=== PATIENT | female | born 1990 | race Caucasian/White ===

== ENCOUNTER 2018-05-10 00:01 | Emergency (ER) | payer BC ==
--- NOTE | 2018-05-10 01:53 | ED ---
HPI Chest Pain - HPI Summary HPI Summary: Patient complains of persistent chest pressure, SOB, insomnia, tingling in arms and legs, vaginal discharge. Patient states same chest symptoms 2 months, with symptoms getting worse today. States history of anxiety, with large increase in recent stress. 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 Patient states symptoms are usually at rest, not with exertion. States symptoms improved with exertion. History of stress test a year ago after patient discovered to have MVP and PVCs. Medical history includes asthma. Denies fever, cough, sore throat, N/V/D, abdominal pain, change in urine or BM, . - History of Current Complaint Chief Complaint: EDChestWallPain Time Seen by Provider: 05/10/18 01:00 Hx Obtained From: Patient Onset/Duration: Started Weeks Ago Timing: Intermittent Initial Severity: Mild Current Severity: Mild Pain Intensity: 4 Pain Scale Used: 0-10 Numeric Chest Pain Location: Discrete at:, Left Anterior Chest Pain Radiates: No Character: Heaviness, Pressure/Squeezing, Tightness Aggravating Factor(s): Rest Alleviating Factor(s): Other: - Exertion Associated Signs and Symptoms: Positive: Chest Pain, Anxiety, Tingling, Shortness of Breath - Allergy/Home Medications Allergies/Adverse Reactions: Allergies Allergy/AdvReac Type Severity Reaction Status Date / Time No Known Allergies Allergy Verified 05/10/18 00:07 PMH/Surg Hx/FS Hx/Imm Hx Endocrine/Hematology History: Denies: Hx Anticoagulant Therapy Cardiovascular History: Denies: Hx Cardiac Arrest History: Denies: Hx Dialysis Neurological History: Denies: Hx CVA Infectious Disease History: No Infectious Disease History: Denies: Traveled Outside the [place] in Last 30 Days - Social History Alcohol Use: Weekly Substance Use Type: Reports: None Smoking Status (MU): Current Some Day Smoker Review of Systems Constitutional: Negative Eyes: Negative ENT: Negative Positive: Chest Pain Positive: Shortness Of Breath Gastrointestinal: Negative Genitourinary: Negative Musculoskeletal: Negative Skin: Negative Positive: Paresthesia Psychological: Normal All Other Systems Reviewed And Are Negative: Yes Physical Exam Triage Information Reviewed: Yes Vital Signs On Initial Exam: Initial Vitals Temp Pulse Resp BP Pulse Ox 97.1 F 58 16 153/86 100 05/10/18 00:04 05/10/18 00:04 05/10/18 00:04 05/10/18 00:04 05/10/18 00:04 Vital Signs Reviewed: Yes Appearance: Positive: Well-Appearing Skin: Positive: Warm Head/Face: Positive: Normal Head/Face Inspection Eyes: Positive: Normal Neck: Positive: Supple Respiratory/Lung Sounds: Positive: Clear to Auscultation Cardiovascular: Positive: Normal Abdomen Description: Positive: Nontender Musculoskeletal: Positive: Normal Neurological: Positive: Normal Psychiatric: Positive: Normal AVPU Assessment: Alert - Valeria Coma Scale Best Eye Response: 4 - Spontaneous Best Motor Response: 6 - Obeys Commands Best Verbal Response: 5 - Oriented Coma Scale Total: 15 Diagnostics - Vital Signs Vital Signs Temp Pulse Resp BP Pulse Ox 05/10/18 00:04 97.1 F 58 16 153/86 100 - Laboratory Lab Statement: Any lab studies that have been ordered have been reviewed, and results considered in the medical decision making process. Chest Pain Course/Dx - Course Course Of Treatment: Patient complains of persistent chest pressure, SOB, insomnia, tingling in arms and legs, vaginal discharge. Patient states same chest symptoms 2 months, with symptoms getting worse today. States history of anxiety, with large increase in recent stress. 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 Patient states symptoms are usually at rest, not with exertion. States symptoms improved with exertion. History of stress test a year ago after patient discovered to have MVP and PVCs. Medical history includes asthma. Denies fever, cough, sore throat, N/V/D, abdominal pain, change in urine or BM, . History of recent bacterial vaginosis infection. States return of vaginal discharge. History of anxiety. Appointment this Wednesday with palpation PCP. Appointment with cardiology . History of similar symptoms over the past year. Has been evaluated by cardiology and primary care for same. History of anxiety. Increase in recent stress with movement to start graduate school here. EKG normal. Vital signs normal. Follow-up with primary care and cardiology. Return for any new or worsening symptoms. Trial Vistaril for anxiety and insomnia. Rx for Flagyl for BV. - Diagnoses Provider Diagnoses: Atypical chest pain, Anxiety, Bacterial vaginosis Discharge - Sign-Out/Discharge Documenting (check all that apply): Patient Departure - Discharge Plan Condition: Stable Disposition: HOME Prescriptions: hydrOXYzine pamoate [Vistaril] 50 mg PO BID 10 Days #20 capsule metroNIDAZOLE [Flagyl] 500 mg PO BID 7 Days #14 tablet Patient Education Materials: Bacterial Vaginosis (ED), Anxiety (ED) Referrals: No Primary Care Phys,NOPCP [Primary Care Provider] - Additional Instructions: Follow-up with primary care and cardiology. Return to the ED for any new or worsening symptoms - Billing Disposition and Condition Condition: STABLE Disposition: Home
[2018-05-10] MEDS ORDERED: hydrOXYzine HCL TAB* 50 MG PO ONE (01:54)
[2018-05-10 02:07] VITALS: BP 124/87
== END 2018-05-10 02:07 | disposition home or self-care (01) ==
LOC: ED 00:01
DX: R07.89 Other chest pain (principal); F41.9 Anxiety disorder, unspecified; N76.0 Acute vaginitis; R06.02 Shortness of breath; G47.00 Insomnia, unspecified; R20.2 Paresthesia of skin; F17.200 Nicotine dependence, unspecified, uncomplicated
CPT/HCPCS: 93005; 99282; A9270-GY

== ENCOUNTER 2018-06-17 18:24 | Emergency (ER) | payer BC ==
--- NOTE | 2018-06-17 19:00 | ED ---
HPI Chest Pain - HPI Summary HPI Summary: The pt is a 27 y/o female presenting to [facility] c/o chest pain since 1629 today. The pain rated 6/10 in intensity is described as a pressure. She notes palpitations, SOB and tingling in the LUE but denies dyspnea. She has a hx of mitral valve prolapse , PVC's, asthma and anxiety . She is on the Mirena IUD. - History of Current Complaint Chief Complaint: EDChestPainROMI Time Seen by Provider: 06/17/18 18:50 Hx Obtained From: Patient, Family/Freight Flow Sales Leader - Friend Onset/Duration: Started Hours Ago - At 1630 today Current Severity: Moderate Pain Intensity: 6 Pain Scale Used: 0-10 Numeric Chest Pain Location: Diffuse Character: Pressure/Squeezing Associated Signs and Symptoms: Positive: Negative - Dyspnea, Chest Pain, Tingling - LUE, Shortness of Breath, Palpitations - Allergy/Home Medications Allergies/Adverse Reactions: Allergies Allergy/AdvReac Type Severity Reaction Status Date / Time sulfamethoxazole Allergy Insomnia Verified 06/17/18 18:31 [From Bactrim] trimethoprim [From Bactrim] Allergy Insomnia Verified 06/17/18 18:31 Home Medications: Home Medications NK [No Home Medications Reported] 06/17/18 [History Confirmed 06/17/18] PMH/Surg Hx/FS Hx/Imm Hx Previously Healthy: No Endocrine/Hematology History: Denies: Hx Anticoagulant Therapy Cardiovascular History: Reports: Other Cardiovascular Problems/Disorders - MVP Denies: Hx Cardiac Arrest Respiratory History: Reports: Hx Asthma History: Denies: Hx Dialysis Sensory History: Denies: Hx Deafness Opthamlomology History: Denies: Hx Legally Blind Neurological History: Denies: Hx CVA Psychiatric History: Reports: Hx Anxiety - Cancer History Cancer Type, Location and Year: None reported Infectious Disease History: No Infectious Disease History: Denies: Traveled Outside the [place] in Last 30 Days - Family History Known Family History: Positive: Cardiac Disease, Hypertension, Diabetes, Other - HLD, MVP - Social History Alcohol Use: Weekly Substance Use Type: Reports: Marijuana Smoking Status (MU): Current Some Day Smoker Review of Systems Positive: Palpitations, Chest Pain Respiratory: Negative - Dyspnea Positive: Shortness Of Breath Neurological: Other - Positive- tingling in the LUE All Other Systems Reviewed And Are Negative: Yes Physical Exam - Summary Physical Exam Summary: Appearance: Well appearing, no pain distress Skin: warm, dry, reflects adequate perfusion Head/face: normal Eyes: EOMI, GAIL ENT: normal Neck: supple, non-tender Respiratory: CTA, breath sounds present Cardiovascular: RRR, pulses symmetrical Abdomen: non-tender, soft Bowel: present Musculoskeletal: normal, strength/ROM intact Neuro: normal, sensory motor intact, A&Ox3 Triage Information Reviewed: Yes Vital Signs On Initial Exam: Initial Vitals Temp Pulse Resp BP Pulse Ox 98.3 F 78 16 123/71 100 06/17/18 18:28 06/17/18 18:28 06/17/18 18:28 06/17/18 18:28 06/17/18 18:28 Vital Signs Reviewed: Yes Diagnostics - Vital Signs Vital Signs Temp Pulse Resp BP Pulse Ox 06/17/18 18:47 80 18 119/85 100 06/17/18 18:28 98.3 F 78 16 123/71 100 - Laboratory Result Diagrams: 06/17/18 19:04 06/17/18 19:04 Lab Statement: Any lab studies that have been ordered have been reviewed, and results considered in the medical decision making process. - EKG 19:09 Cardiac Rate: NL - 70 bpm EKG Rhythm: Sinus Rhythm EKG Interpretation: No acute changes Chest Pain Course/Dx - Course Course Of Treatment: A 27-year-old F presents to the ED with a CC of chest pain since 1630 today. The pain rated 6/10 in intensity is described as a pressure. She notes palpitations, SOB and tingling in the LUE but denies dyspnea. She has a hx of mitral valve prolapse, PVC's, asthma and anxiety. She is on the Mirena IUD. A physical exam is normal. A CXR is unremarkable. An EKG is unremarkable. Patient will be discharged with a final Dx of palpitations and atypical chest pain. The pt is agreeable with this plan. Allergies noted. - Chest Pain Differential Diagnosis/HQI/PQRI: Chest Wall, Other: - palpitations - Diagnoses Provider Diagnoses: Palpitations, Atypical chest pain Discharge - Sign-Out/Discharge Documenting (check all that apply): Patient Departure - DC - Discharge Plan Condition: Improved Disposition: HOME Patient Education Materials: Chest Pain (ED), Heart Palpitations (ED) Referrals: Aracely Garcia MD [Primary Care Provider] - 2 Weeks Additional Instructions: Return to ED for any new or worsening symptoms - Billing Disposition and Condition Condition: IMPROVED Disposition: Home - Attestation Statements Document Initiated by Jeffreyibeloina: Yes Documenting Scribe: Paola Georges Provider For Whom Jeffreyibeloina is Documenting (Include Credential): Dr. Sydnee Crocker MD Scribe Attestation: Paola Monterroso , scribed for Dr. Sydnee Crocker MD on 06/17/18 at 2049. Scribe Documentation Reviewed: Yes Provider Attestation: The documentation as recorded by the Paola jiménez accurately reflects the service I personally performed and the decisions made by , Dr. Sydnee Crocker MD
[2018-06-17 19:31] LABS: ABS Basophils 0 10^3/ul (0-0.2); ABS Eosinophils 0 10^3/ul (0-0.6); ABS Lymphocytes 1.6 10^3/ul (1.0-4.8); ABS Monocytes 0.3 10^3/ul (0-0.8); ABS Neutrophils 7.3 10^3/ul (1.5-7.7); ABS Nucleated RBC 0 10^3/ul; Eosinophil % 0.1 % (0-6); Hematocrit 43 % (35-47); Hemoglobin 14.6 g/dl (12.0-16.0); Mean Corpuscular HGB Conc 34 g/dl (31-36); Mean Corpuscular Hemoglobin 31 pg (27-31); Mean Corpuscular Volume 92 fL (80-97); Mean Platelet Volume 8.6 um3 (7.4-10.4); Nucleated Red Blood Cells % 0; Platelet Count 183 10^3/ul (150-450); Red Blood Count 4.66 10^6/ul (4.00-5.40); Red Cell Distribution Width 14 % (10.5-15); White Blood Count 9.2 10^3/ul (3.5-10.8)
[2018-06-17 19:38] LABS: INR 0.91 (0.77-1.02)
[2018-06-17 20:31] VITALS: BP 131/70
--- NOTE | 2018-06-18 07:40 | RAD ---
HISTORY: palpitations COMPARISONS: None VIEWS: 1: frontal AP view of the chest at 7:21 PM FINDINGS: LINES AND TUBES: None. CARDIOMEDIASTINAL SILHOUETTE: The cardiomediastinal silhouette is normal for portable technique. PLEURA: The costophrenic angles are sharp. No pleural abnormalities are noted. LUNG PARENCHYMA: The lungs are clear. ABDOMEN: The upper abdomen is clear. There is no subphrenic gas. BONES AND SOFT TISSUES: No bone or soft tissue abnormalities are noted. IMPRESSION: NO ACTIVE CARDIOPULMONARY DISEASE. R1
== END 2018-06-17 20:30 | disposition home or self-care (01) ==
LOC: ED 18:24
DX: S52.92XA Unspecified fracture of left forearm, initial encounter for closed fracture (principal); R05 Cough; W19.XXXA Unspecified fall, initial encounter; Y92.9 Unspecified place or not applicable
CPT/HCPCS: 36415; 71045; 80053; 83735; 83880; 84443; 84484; 84702; 85025; 85379; 85610; 85730; 93005; 99282